=== PATIENT | male | born 1995 | race Caucasian/White ===

== ENCOUNTER 2016-10-18 18:44 | Emergency (ER) | payer SELFPAY ==
[~2016-10-18] VITALS: Ht 175.3 cm; Wt 103.5 kg
[2016-10-18 18:54] VITALS: Ht 175.3 cm; Wt 103.5 kg
--- NOTE | 2016-10-18 20:33 | ERD ---
ER Documentation Chief Complaint Date/Time DATE: 10/18/16 TIME: 20:26 Chief Complaint penis bleeding after sex. Denies pain. No active bleeding noted HPI 21 year old male presents with tear on his penis status post rough intercourse within an hour prior to being seen. Patient denies pain. States that there is active bleeding. Denies circumcision ROS All systems reviewed and are negative except as per history of present illness. Allergies Allergies: Coded Allergies: No Known Allergy (Unverified , 10/18/16) PMhx/Soc Medical and Surgical Hx: pt denies Medical Hx, pt denies Surgical Hx History of Surgery: No Anesthesia Reaction: No Hx Neurological Disorder: No Hx Respiratory Disorders: No Hx Cardiac Disorders: No Hx Psychiatric Problems: No Hx Miscellaneous Medical Probl: No Hx Alcohol Use: Yes Hx Substance Use: No Hx Tobacco Use: No Smoking Status: Never smoker Physical Exam Vitals Vital Signs Date Time Temp Pulse Resp B/P Pulse Ox O2 Delivery O2 Flow Rate FiO2 10/18/16 18:54 98.7 118 18 135/87 96 Physical Exam Const: WD/WN no acute distress Head: Atraumatic Eyes: Normal Conjunctiva ENT: Normal External Ears, Nose and Mouth. Neck: Full range of motion..~ No meningismus. Resp: Clear to auscultation bilaterally Cardio: Regular rate and rhythm, no murmurs Abd: Soft, non tender, non distended. Normal bowel sounds Skin: superficial tear between glans and shaft Back: No midline or flank tenderness Ext: No cyanosis, or edema Neur: Awake and alert Psych: Normal Mood and Affect Procedures/MDM 21 year old male presents to the ED with superficial tear between shaft and glans status post rough intercourse within couple hours prior to being seen. At this time the tear is superficial and does not require any suturing. I have consulted my supervising physician Dr. Horn who has also evaluated the patient and agrees. Patient is stable to be discharged home. He is to follow-up with urology was given. Discussed return to ER for worsening signshe understands and agrees with plan Departure Diagnosis: Primary Impression: Penile laceration Condition: Stable Patient Instructions: Laceration, Small/Superficial, Not Sutured Referrals: KATLIN BARNEY,JULIET YATES,PARI ALLEN,YANETH SEE,HAIM K RASHAWNJAYLENE SINGH RICHARD MD Additional Instructions: FOLLOW UP WITH YOUR PRIMARY CARE PHYSICIAN TOMORROW.Return to this facility if you are not improving as expected. Take all medicines as directed. Return to this facility if you are not improving as expected. ANTONIO MCADAMS PA-C Oct 18, 2016 20:33
== END 2016-10-18 20:24 | disposition home or self-care (01) ==
LOC: FTE 18:44
DX: S31.21XA Laceration without foreign body of penis, initial encounter (principal); X58.XXXA Exposure to other specified factors, initial encounter; Y92.9 Unspecified place or not applicable
CPT/HCPCS: 99282

== ENCOUNTER 2017-11-14 04:59 | Emergency (ER) | END 2017-11-14 06:57 | disposition home or self-care (01) ==